=== PATIENT | male | born 1955 | race Hispanic/Latino ===

== ENCOUNTER → 2020-05-08 | Outpatient (CLI) | payer OTHER | END | disposition home or self-care (01) | LOC: RAH 09:26 | PROVIDERS: ATTEND Internal Medicine | DX: C10.9 Malignant neoplasm of oropharynx, unspecified (principal) | CPT/HCPCS: 74230; 92611 ==

== ENCOUNTER 2020-05-17 10:22 | Day surgery (SDC) | payer OTHER ==
[~2020-05-17] VITALS: Ht 170.2 cm; Wt 44.0 kg
[2020-05-17] VITALS (9 sets, daily range): BP systolic 85–138; BP diastolic 50–74
[2020-05-17] MEDS ORDERED: PROPOFOL 10 MG/ML 20ML VIAL IV ONE (12:27)
[2020-05-17] MEDS ORDERED: CLOP75TA32 PO (13:30)
[2020-05-17] MEDS ORDERED: ATOR10TA69 PO (13:30)
[2020-05-17] MEDS ORDERED: HYDR-4105 PO (13:30)
[2020-05-17] MEDS ORDERED: DICY20TA11 PO (13:31)
== END 2020-05-17 13:35 | disposition home or self-care (01) ==
LOC: ENDO 10:22
PROVIDERS: ATTEND Internal Medicine Gastroenterology
DX: R13.12 Dysphagia, oropharyngeal phase (principal); Z20.822 Contact with and (suspected) exposure to COVID-19; K29.70 Gastritis, unspecified, without bleeding; I10 Essential (primary) hypertension; R62.7 Adult failure to thrive; E78.2 Mixed hyperlipidemia; K94.29 Other complications of gastrostomy; F17.210 Nicotine dependence, cigarettes, uncomplicated; Z72.89 Other problems related to lifestyle; Z85.89 Personal history of malignant neoplasm of other organs and systems; Z79.899 Other long term (current) drug therapy; Z98.890 Other specified postprocedural states
CPT/HCPCS: 43246; 87426; A4215 ×2; A4221; A4222; A4223; A4606; A4620; A4657; A4663; J2704; 43239